=== PATIENT | male | born 1990 | race Caucasian/White ===

== ENCOUNTER 2022-09-30 08:01 | Outpatient (CLI) | payer BC | END 2022-09-30 08:02 | disposition home or self-care (01) | LOC: CSHCT 08:01 | PROVIDERS: ATTEND Physician Assistant Surgical | DX: S82.451D Displaced comminuted fracture of shaft of right fibula, subsequent encounter for closed fracture with routine healing (principal); S82.301D Unspecified fracture of lower end of right tibia, subsequent encounter for closed fracture with routine healing; S82.831D Other fracture of upper and lower end of right fibula, subsequent encounter for closed fracture with routine healing; Z98.890 Other specified postprocedural states ==